=== PATIENT | male | born 1985 | race Asian ===

== ENCOUNTER 2018-05-23 14:32 | Inpatient (IN) | payer OTHER ==
[~2018-05-23] VITALS: Ht 172.7 cm; Wt 154.6 kg
[2018-05-23] MEDS: ACCU-CHEK COMFORT CURVE STRIP VI SCH (11:05)
[2018-05-23] MEDS ORDERED: VANCOMYCIN 1GM/250ML 250 ML IV ONE (19:30)
[2018-05-23] MEDS ORDERED: cefTRIAXone 1GM/10ml IVPUSH 10 ML IV ONE (19:30)
[2018-05-23 19:34] LABS: Basophils # (auto) 0.2 uL; Eosinophils # (auto) 0.1 uL; Eosinophils % (auto) 0.7 % (0.0-7.0); Mean Corpuscular Hemoglobin 27.8 pg (28.0-32.0); Mean Corpuscular Hgb Conc. 33.6 g/dL (32.0-36.0); White Blood Cell 15.5 10^3/uL (4.4-10.8)
[2018-05-23 19:35] LABS: Hematocrit 49.2 % (41.0-53.0); Hemoglobin 16.5 g/dL (13.5-17.5); Mean Corpuscular Volume 82.6 fL (80.0-100.0); Monocytes % (auto) 6.4 % (0.0-12.0); Neutrophils # (auto) 12.2 uL; Neutrophils % (auto) 78.9 % (37.0-80.0); Nucleated Red Blood Cells % 0.3 %; Platelet Count (auto) 473 10^3/uL (140-450); Red Blood Cells 5.96 10^6/uL (4.5-5.90); Red Cell Distribution Width 14.1 % (11.8-14.3)
[2018-05-23 19:49] LABS: Calcium 8.9 mg/dL (8.5-10.1)
[2018-05-23 19:52] LABS: Albumin 2.6 g/dL (3.4-5.0); BUN/Creatinine Ratio 14.5
[2018-05-23 19:55] LABS: Bilirubin, Total 0.2 mg/dL (0.2-1.0); Total Protein 8.9 g/dL (6.4-8.2)
[2018-05-23 19:57] LABS: Lactic Acid w/Reflex 2.3 mmol/L (0.4-2.0)
[2018-05-23] MEDS: SODIUM CHLORIDE 0.9% 1,000 ML IV SCH (20:15)
[2018-05-23] MEDS ORDERED: metFORMIN HYDROCHLORIDE 500 MG TAB PO ONE (20:15)
[2018-05-23] MEDS ORDERED: MORPHINE SULFATE 4 MG/ML SYR/VIAL IV ONE (20:15)
[2018-05-23] MEDS ORDERED: ONDANSETRON HCL 4 MG/2 ML VIAL IV ONE (20:15)
[2018-05-23] MEDS ORDERED: DEXTROSE (50%) 50ML SYRG IV PRN (21:15)
[2018-05-23] MEDS: metFORMIN HYDROCHLORIDE 500 MG TAB PO SCH (21:45)
[2018-05-23] MEDS ORDERED: ACCU-CHEK COMFORT CURVE STRIP VI ONE (22:00)
[2018-05-23 22:30] VITALS: BP 128/80
[2018-05-23 23:04] VITALS: BP 128/80
[2018-05-23] MEDS: InsuLIN REG 1unit/0.01ml Soln (100units/ml) SC SCH (23:50)
[2018-05-24] MEDS: SODIUM CHLORIDE 0.9% 1,000 ML IV SCH ×5 (00:34→16:15)
[2018-05-24] MEDS: HYDROcodone-ACET 10/325MG TAB PO SCH ×5 (02:16→17:47)
[2018-05-24 05:24] VITALS: BP 93/52
[2018-05-24 05:53] LABS: Basophils # (auto) 0.1 uL; Basophils % (auto) 0.4 % (0.0-2.0); Eosinophils # (auto) 0.2 uL; Hematocrit 44.6 % (41.0-53.0); Lymphocytes # (auto) 2.1 uL; Lymphocytes % (auto) 13.2 % (10.0-50.0); Mean Corpuscular Hemoglobin 27.7 pg (28.0-32.0); Mean Corpuscular Hgb Conc. 33.6 g/dL (32.0-36.0); Mean Corpuscular Volume 82.2 fL (80.0-100.0); Monocytes # (auto) 1.3 uL; Monocytes % (auto) 8.4 % (0.0-12.0); Neutrophils # (auto) 12.2 uL; Nucleated Red Blood Cells % 0.2 %; Platelet Count (auto) 400 10^3/uL (140-450); Red Blood Cells 5.42 10^6/uL (4.5-5.90); Red Cell Distribution Width 13.7 % (11.8-14.3); White Blood Cell 15.9 10^3/uL (4.4-10.8)
[2018-05-24 06:18] LABS: BUN/Creatinine Ratio 14.5; Calcium 8.1 mg/dL (8.5-10.1)
[2018-05-24] MEDS: ACCU-CHEK COMFORT CURVE STRIP VI SCH ×4 (06:27→22:00)
[2018-05-24] MEDS: InsuLIN REG 1unit/0.01ml Soln (100units/ml) SC SCH ×4 (06:31→22:00)
[2018-05-24] MEDS: metFORMIN HYDROCHLORIDE 500 MG TAB PO SCH ×2 (08:00→17:47)
[2018-05-24] MEDS: VANCOMYCIN 1GM/250ML 250 ML IV SCH ×2 (08:06→20:13)
[2018-05-24] MEDS: INSULIN LANTUS (GLARGINE) 1 /0.01ml (100units/ml) SC SCH (08:30)
[2018-05-24 08:35] VITALS: BP 95/59
[2018-05-24 12:22] VITALS: BP 95/60
[2018-05-24 16:42] VITALS: BP 100/61
[2018-05-24 22:10] VITALS: BP 110/62
[2018-05-25] MEDS: SODIUM CHLORIDE 0.9% 1,000 ML IV SCH ×3 (00:15→04:15)
[2018-05-25] MEDS: HYDROcodone-ACET 10/325MG TAB PO SCH ×4 (02:14→14:00)
[2018-05-25 04:54] VITALS: BP 106/64
[2018-05-25 06:06] LABS: INR 1.01 (0.9-1.15); Partial Thromboplastin Time 28.9 sec (23.78-33.04); Prothrombin Time 10.8 sec (9.27-12.13)
[2018-05-25] MEDS: InsuLIN REG 1unit/0.01ml Soln (100units/ml) SC SCH ×4 (06:14→22:46)
[2018-05-25] MEDS: ACCU-CHEK COMFORT CURVE STRIP VI SCH ×4 (06:14→22:42)
[2018-05-25] MEDS: INSULIN LANTUS (GLARGINE) 1 /0.01ml (100units/ml) SC SCH (06:14)
[2018-05-25 08:00] VITALS: BP 122/69
[2018-05-25] MEDS: VANCOMYCIN 1GM/250ML 250 ML IV SCH ×3 (08:07→18:00)
[2018-05-25] MEDS: metFORMIN HYDROCHLORIDE 500 MG TAB PO SCH ×2 (08:11→18:56)
[2018-05-25 09:00] VITALS: BP 122/69
[2018-05-25] MEDS: ENOXAPARIN SOD 40 MG/0.4 ML SYRINGE SC SCH (10:00)
[2018-05-25] MEDS: PANTOPRAZOLE 40 MG TAB PO SCH (10:00)
[2018-05-25] MEDS ORDERED: ROCURONIUM 10MG/ML 10ML VIAL IV ONE ×2 (10:45→16:17)
[2018-05-25] MEDS: PIPERACILLIN-TAZOB 3.375GM 100 ML IV SCH ×3 (12:33→21:02)
[2018-05-25 13:00] VITALS: BP 116/67
[2018-05-25] MEDS ORDERED: SUCCINYLCHOLINE CHLORIDE 20 MG/ML 10ML VIAL IV ONE (16:11)
[2018-05-25] MEDS ORDERED: MIDAZOLAM HCL 1MG/1ML-2 ML VIAL ONE (16:16)
[2018-05-25] MEDS ORDERED: fentaNYL CITRATE 100 MCG/2 ML VL ONE (16:16)
[2018-05-25] MEDS ORDERED: PROPOFOL 10 MG/ML 20 ML IV ONE (16:17)
[2018-05-25] MEDS ORDERED: ceFAZolin 1GM VL ONE (16:23)
[2018-05-25] MEDS ORDERED: LIDOCAINE 1% HCL (LOCAL ANESTH.) INJ 20ML MDV ONE (16:26)
[2018-05-25] MEDS ORDERED: BUPIVACAINE HCL 50 ML ONE (16:26)
[2018-05-25 17:00] VITALS: BP 129/74
[2018-05-25] MEDS ORDERED: ONDANSETRON HCL 4 MG/2 ML VIAL ONE (17:22)
[2018-05-25] MEDS ORDERED: METOCLOPRAMIDE HCL 5MG/ml INJ 2ml VIAL ONE (17:22)
[2018-05-25] MEDS ORDERED: NEOSTIGMINE 1 MG/ML INJ (10mg/10ML VIAL) ONE (17:25)
[2018-05-25] MEDS ORDERED: GLYCOPYRROLATE 0.2 MG/ML 1ML VIAL ONE (17:26)
[2018-05-25] MEDS ORDERED: OXYCODONE W/ ACETAMINOPHEN 5/325MG TABLET PO PRN (17:45)
[2018-05-25] MEDS ORDERED: ONDANSETRON HCL 4 MG/2 ML VIAL IV ONE (18:00)
[2018-05-25] MEDS ORDERED: HYDROmorphone HCL 2 MG/ML VL IV PRN (18:00)
[2018-05-25] MEDS ORDERED: HYDROmorphone HCL 2 MG/ML VL ONE (18:23)
[2018-05-25] MEDS: OXYCODONE W/ ACETAMINOPHEN 5/325MG TABLET PO PRN (21:02)
[2018-05-25 22:00] VITALS: BP 127/79
[2018-05-26] MEDS: VANCOMYCIN 1GM/250ML 250 ML IV SCH ×5 (00:23→23:42)
[2018-05-26] MEDS: PIPERACILLIN-TAZOB 3.375GM 100 ML IV SCH ×4 (02:32→21:02)
[2018-05-26 05:00] VITALS: BP 119/74
[2018-05-26 05:46] LABS: Basophils # (auto) 0.1 uL; Basophils % (auto) 0.4 % (0.0-2.0); Eosinophils # (auto) 0.1 uL; Eosinophils % (auto) 0.5 % (0.0-7.0); Hemoglobin 12.5 g/dL (13.5-17.5); Lymphocytes # (auto) 1.8 uL; Mean Corpuscular Hemoglobin 27.7 pg (28.0-32.0); Mean Corpuscular Hgb Conc. 33.9 g/dL (32.0-36.0); Mean Corpuscular Volume 81.6 fL (80.0-100.0); Monocytes % (auto) 6.6 % (0.0-12.0); Neutrophils # (auto) 12.1 uL; Neutrophils % (auto) 80.5 % (37.0-80.0); Platelet Count (auto) 340 10^3/uL (140-450); Red Blood Cells 4.53 10^6/uL (4.5-5.90); Red Cell Distribution Width 13.4 % (11.8-14.3); White Blood Cell 15.1 10^3/uL (4.4-10.8)
[2018-05-26 06:06] LABS: Potassium 4.4 mmol/L (3.5-5.1)
[2018-05-26 06:15] LABS: BUN/Creatinine Ratio 16.5; Calcium 7.6 mg/dL (8.5-10.1)
[2018-05-26] MEDS: ACCU-CHEK COMFORT CURVE STRIP VI SCH ×4 (07:03→22:01)
[2018-05-26] MEDS: InsuLIN REG 1unit/0.01ml Soln (100units/ml) SC SCH ×4 (07:04→22:01)
[2018-05-26] MEDS: INSULIN LANTUS (GLARGINE) 1 /0.01ml (100units/ml) SC SCH (07:04)
[2018-05-26] MEDS: OXYCODONE W/ ACETAMINOPHEN 5/325MG TABLET PO PRN ×3 (07:26→21:02)
[2018-05-26] MEDS: metFORMIN HYDROCHLORIDE 500 MG TAB PO SCH ×2 (08:10→17:45)
[2018-05-26 09:00] VITALS: BP 137/81
[2018-05-26] MEDS: ENOXAPARIN SOD 40 MG/0.4 ML SYRINGE SC SCH (10:05)
[2018-05-26] MEDS: PANTOPRAZOLE 40 MG TAB PO SCH (10:05)
[2018-05-26 12:30] VITALS: BP 133/76
[2018-05-26 17:00] VITALS: BP 124/81
[2018-05-26 21:30] VITALS: BP 144/74
[2018-05-27] MEDS: PIPERACILLIN-TAZOB 3.375GM 100 ML IV SCH ×4 (03:10→21:13)
[2018-05-27 05:00] VITALS: BP 137/85
[2018-05-27 05:40] LABS: Basophils # (auto) 0.1 uL; Basophils % (auto) 0.7 % (0.0-2.0); Eosinophils # (auto) 0.1 uL; Eosinophils % (auto) 1.4 % (0.0-7.0); Hematocrit 34.9 % (41.0-53.0); Hemoglobin 11.8 g/dL (13.5-17.5); Lymphocytes # (auto) 1.3 uL; Lymphocytes % (auto) 16.1 % (10.0-50.0); Mean Corpuscular Hemoglobin 27.7 pg (28.0-32.0); Mean Corpuscular Hgb Conc. 33.9 g/dL (32.0-36.0); Mean Corpuscular Volume 81.7 fL (80.0-100.0); Monocytes # (auto) 0.6 uL; Neutrophils % (auto) 74.8 % (37.0-80.0); Platelet Count (auto) 344 10^3/uL (140-450); Red Blood Cells 4.27 10^6/uL (4.5-5.90); Red Cell Distribution Width 13.6 % (11.8-14.3); White Blood Cell 8.1 10^3/uL (4.4-10.8)
[2018-05-27 05:59] LABS: Albumin 1.8 g/dL (3.4-5.0); Calcium 7.9 mg/dL (8.5-10.1)
[2018-05-27 06:05] LABS: BUN/Creatinine Ratio 16.2; Bilirubin, Total 0.3 mg/dL (0.2-1.0); Total Protein 6.5 g/dL (6.4-8.2)
[2018-05-27] MEDS: OXYCODONE W/ ACETAMINOPHEN 5/325MG TABLET PO PRN ×4 (06:23→21:14)
[2018-05-27] MEDS: VANCOMYCIN 1GM/250ML 250 ML IV SCH ×3 (06:23→17:44)
[2018-05-27] MEDS: InsuLIN REG 1unit/0.01ml Soln (100units/ml) SC SCH ×4 (06:28→21:19)
[2018-05-27] MEDS: ACCU-CHEK COMFORT CURVE STRIP VI SCH ×4 (06:29→21:20)
[2018-05-27] MEDS: INSULIN LANTUS (GLARGINE) 1 /0.01ml (100units/ml) SC SCH (06:29)
[2018-05-27] MEDS: MORPHINE SULFATE 4 MG/ML SYR/VIAL IV PRN (07:30)
[2018-05-27 08:07] VITALS: BP 169/96
[2018-05-27] MEDS: metFORMIN HYDROCHLORIDE 500 MG TAB PO SCH ×2 (08:41→17:53)
[2018-05-27] MEDS: PANTOPRAZOLE 40 MG TAB PO SCH (10:32)
[2018-05-27] MEDS: ENOXAPARIN SOD 40 MG/0.4 ML SYRINGE SC SCH (10:32)
[2018-05-27 11:59] VITALS: BP 150/79
[2018-05-27] MEDS ORDERED: OXYCODONE W/ ACETAMINOPHEN 5/325MG TABLET PO ONE (13:00)
[2018-05-27 16:51] VITALS: BP 163/90
[2018-05-27] MEDS ORDERED: ASCORBIC ACID 500 MG TAB PO ONE (17:15)
[2018-05-27] MEDS ORDERED: MULTIPLE VITAMIN TAB PO ONE (17:15)
[2018-05-27] MEDS: Pro-Stat SF 30ml Vanilla PO SCH (18:38)
[2018-05-27] MEDS: ASCORBIC ACID 500 MG TAB PO SCH (21:19)
[2018-05-28] MEDS: VANCOMYCIN 1GM/250ML 250 ML IV SCH ×5 (00:28→23:32)
[2018-05-28] MEDS: OXYCODONE W/ ACETAMINOPHEN 5/325MG TABLET PO PRN ×3 (01:22→11:42)
[2018-05-28] MEDS: PIPERACILLIN-TAZOB 3.375GM 100 ML IV SCH ×4 (03:28→20:56)
[2018-05-28 05:56] VITALS: BP 139/82
[2018-05-28] MEDS: ACCU-CHEK COMFORT CURVE STRIP VI SCH ×4 (06:14→23:31)
[2018-05-28] MEDS: INSULIN LANTUS (GLARGINE) 1 /0.01ml (100units/ml) SC SCH (06:14)
[2018-05-28] MEDS: InsuLIN REG 1unit/0.01ml Soln (100units/ml) SC SCH ×4 (06:14→23:33)
[2018-05-28] MEDS: Pro-Stat SF 30ml Vanilla PO SCH ×2 (08:00→18:03)
[2018-05-28 09:00] VITALS: BP 137/85
[2018-05-28] MEDS: MULTIPLE VITAMIN TAB PO SCH (11:09)
[2018-05-28] MEDS: metFORMIN HYDROCHLORIDE 500 MG TAB PO SCH ×2 (11:09→18:19)
[2018-05-28] MEDS: PANTOPRAZOLE 40 MG TAB PO SCH (11:10)
[2018-05-28] MEDS: ENOXAPARIN SOD 40 MG/0.4 ML SYRINGE SC SCH (11:10)
[2018-05-28] MEDS: ASCORBIC ACID 500 MG TAB PO SCH ×2 (11:10→21:02)
[2018-05-28 12:00] VITALS: BP 154/89
[2018-05-28 16:00] VITALS: BP 144/91
[2018-05-28] MEDS: MORPHINE SULFATE 4 MG/ML SYR/VIAL IV PRN ×2 (17:25→22:00)
[2018-05-28 22:00] VITALS: BP 147/71
[2018-05-29] MEDS: MORPHINE SULFATE 4 MG/ML SYR/VIAL IV PRN ×4 (03:15→21:42)
[2018-05-29] MEDS: PIPERACILLIN-TAZOB 3.375GM 100 ML IV SCH ×4 (03:22→22:20)
[2018-05-29 04:00] VITALS: BP 145/88
[2018-05-29] MEDS: VANCOMYCIN 1GM/250ML 250 ML IV SCH ×2 (06:12→12:06)
[2018-05-29] MEDS: ACCU-CHEK COMFORT CURVE STRIP VI SCH ×4 (06:15→21:05)
[2018-05-29] MEDS: InsuLIN REG 1unit/0.01ml Soln (100units/ml) SC SCH ×4 (06:16→21:05)
[2018-05-29] MEDS: INSULIN LANTUS (GLARGINE) 1 /0.01ml (100units/ml) SC SCH (06:17)
[2018-05-29] MEDS: metFORMIN HYDROCHLORIDE 500 MG TAB PO SCH ×2 (08:04→19:02)
[2018-05-29] MEDS: Pro-Stat SF 30ml Vanilla PO SCH ×2 (08:08→19:01)
[2018-05-29 08:24] VITALS: BP 146/83
[2018-05-29 08:35] LABS: Potassium 4.5 mmol/L (3.5-5.1)
[2018-05-29 08:42] LABS: Calcium 8.4 mg/dL (8.5-10.1)
[2018-05-29] MEDS: PANTOPRAZOLE 40 MG TAB PO SCH (09:50)
[2018-05-29] MEDS: ENOXAPARIN SOD 40 MG/0.4 ML SYRINGE SC SCH (09:50)
[2018-05-29] MEDS: MULTIPLE VITAMIN TAB PO SCH (09:50)
[2018-05-29] MEDS: ASCORBIC ACID 500 MG TAB PO SCH ×2 (09:50→21:05)
[2018-05-29 11:48] VITALS: BP 146/88
[2018-05-29] MEDS ORDERED: OXYCODONE W/ ACETAMINOPHEN 5/325MG TABLET PO PRN (14:45)
[2018-05-29 17:00] VITALS: BP 148/84
[2018-05-29 21:19] VITALS: BP 147/95
[2018-05-30] MEDS: MORPHINE SULFATE 4 MG/ML SYR/VIAL IV PRN ×6 (01:41→22:43)
[2018-05-30] MEDS: PIPERACILLIN-TAZOB 3.375GM 100 ML IV SCH ×4 (04:34→22:44)
[2018-05-30 05:34] VITALS: BP 150/98
[2018-05-30] MEDS: ACCU-CHEK COMFORT CURVE STRIP VI SCH ×4 (06:40→22:00)
[2018-05-30] MEDS: InsuLIN REG 1unit/0.01ml Soln (100units/ml) SC SCH ×4 (06:40→22:00)
[2018-05-30] MEDS: INSULIN LANTUS (GLARGINE) 1 /0.01ml (100units/ml) SC SCH (06:40)
[2018-05-30 07:53] VITALS: BP 164/87
[2018-05-30] MEDS: Pro-Stat SF 30ml Vanilla PO SCH ×2 (08:00→18:08)
[2018-05-30] MEDS: metFORMIN HYDROCHLORIDE 500 MG TAB PO SCH ×2 (08:00→18:07)
[2018-05-30] MEDS: MULTIPLE VITAMIN TAB PO SCH (09:41)
[2018-05-30] MEDS: ENOXAPARIN SOD 40 MG/0.4 ML SYRINGE SC SCH (09:41)
[2018-05-30] MEDS: PANTOPRAZOLE 40 MG TAB PO SCH (09:41)
[2018-05-30] MEDS: ASCORBIC ACID 500 MG TAB PO SCH ×2 (09:41→22:42)
[2018-05-30 12:20] VITALS: BP 149/91
[2018-05-30 17:00] VITALS: BP 158/88
[2018-05-30 17:41] LABS: Basophils # (auto) 0.1 uL; Basophils % (auto) 1.1 % (0.0-2.0); Eosinophils # (auto) 0.1 uL; Eosinophils % (auto) 1.3 % (0.0-7.0); Hematocrit 35.6 % (41.0-53.0); Hemoglobin 11.8 g/dL (13.5-17.5); Lymphocytes # (auto) 2.2 uL; Lymphocytes % (auto) 25.1 % (10.0-50.0); Mean Corpuscular Hemoglobin 27.2 pg (28.0-32.0); Mean Corpuscular Hgb Conc. 33.1 g/dL (32.0-36.0); Mean Corpuscular Volume 82.1 fL (80.0-100.0); Monocytes # (auto) 0.6 uL; Monocytes % (auto) 6.9 % (0.0-12.0); Neutrophils # (auto) 5.7 uL; Neutrophils % (auto) 65.6 % (37.0-80.0); Nucleated Red Blood Cells % 0.1 %; Platelet Count (auto) 379 10^3/uL (140-450); Red Blood Cells 4.33 10^6/uL (4.5-5.90); Red Cell Distribution Width 13.7 % (11.8-14.3); White Blood Cell 8.6 10^3/uL (4.4-10.8)
[2018-05-30] MEDS ORDERED: cloNIDine HCL 0.1 MG TAB PO PRN (18:30)
[2018-05-30 21:31] VITALS: BP 146/80
[2018-05-31 05:14] VITALS: BP 149/87
[2018-05-31] MEDS: PIPERACILLIN-TAZOB 3.375GM 100 ML IV SCH ×4 (06:03→22:27)
[2018-05-31] MEDS: InsuLIN REG 1unit/0.01ml Soln (100units/ml) SC SCH ×4 (07:00→22:26)
[2018-05-31] MEDS: ACCU-CHEK COMFORT CURVE STRIP VI SCH ×4 (07:00→22:26)
[2018-05-31] MEDS: MORPHINE SULFATE 4 MG/ML SYR/VIAL IV PRN ×4 (07:00→22:30)
[2018-05-31] MEDS: INSULIN LANTUS (GLARGINE) 1 /0.01ml (100units/ml) SC SCH (07:00)
[2018-05-31] MEDS: metFORMIN HYDROCHLORIDE 500 MG TAB PO SCH ×2 (08:52→18:14)
[2018-05-31] MEDS: Pro-Stat SF 30ml Vanilla PO SCH ×2 (08:52→18:15)
[2018-05-31 09:01] VITALS: BP 150/79
[2018-05-31] MEDS: MULTIPLE VITAMIN TAB PO SCH (09:42)
[2018-05-31] MEDS: ASCORBIC ACID 500 MG TAB PO SCH ×2 (09:43→22:25)
[2018-05-31] MEDS: PANTOPRAZOLE 40 MG TAB PO SCH (09:43)
[2018-05-31] MEDS: ENOXAPARIN SOD 40 MG/0.4 ML SYRINGE SC SCH (09:43)
[2018-05-31] MEDS ORDERED: LOSARTAN POTASSIUM 50 MG TAB PO SCH (10:00)
[2018-05-31 13:00] VITALS: BP 151/81
[2018-05-31 17:00] VITALS: BP 137/77
[2018-05-31 22:00] VITALS: BP 156/87
[2018-06-01 05:00] VITALS: BP 141/78
[2018-06-01] MEDS: PIPERACILLIN-TAZOB 3.375GM 100 ML IV SCH ×4 (05:00→22:40)
[2018-06-01] MEDS: InsuLIN REG 1unit/0.01ml Soln (100units/ml) SC SCH ×4 (06:52→22:24)
[2018-06-01] MEDS: INSULIN LANTUS (GLARGINE) 1 /0.01ml (100units/ml) SC SCH (06:52)
[2018-06-01] MEDS: ACCU-CHEK COMFORT CURVE STRIP VI SCH ×4 (06:53→22:24)
[2018-06-01 07:48] VITALS: BP 146/99
[2018-06-01] MEDS: metFORMIN HYDROCHLORIDE 500 MG TAB PO SCH ×2 (08:25→17:51)
[2018-06-01] MEDS: MULTIPLE VITAMIN TAB PO SCH (10:08)
[2018-06-01] MEDS: PANTOPRAZOLE 40 MG TAB PO SCH (10:08)
[2018-06-01] MEDS: ENOXAPARIN SOD 40 MG/0.4 ML SYRINGE SC SCH (10:10)
[2018-06-01] MEDS: ASCORBIC ACID 500 MG TAB PO SCH ×2 (10:10→22:24)
[2018-06-01] MEDS: LOSARTAN POTASSIUM 50 MG TAB PO SCH (10:10)
[2018-06-01] MEDS: Pro-Stat SF 30ml Vanilla PO SCH ×2 (10:13→17:52)
[2018-06-01] MEDS: MORPHINE SULFATE 4 MG/ML SYR/VIAL IV PRN ×3 (10:46→22:41)
[2018-06-01 11:46] VITALS: BP 135/82
[2018-06-01 16:56] VITALS: BP 140/86
[2018-06-01 20:00] VITALS: BP 146/99
[2018-06-01 21:34] VITALS: BP 143/86
[2018-06-02 04:41] VITALS: BP 146/78
[2018-06-02] MEDS: PIPERACILLIN-TAZOB 3.375GM 100 ML IV SCH ×6 (05:08→23:00)
[2018-06-02] MEDS: MORPHINE SULFATE 4 MG/ML SYR/VIAL IV PRN ×5 (05:27→22:00)
[2018-06-02] MEDS: ACCU-CHEK COMFORT CURVE STRIP VI SCH ×4 (06:35→22:00)
[2018-06-02] MEDS: InsuLIN REG 1unit/0.01ml Soln (100units/ml) SC SCH ×4 (06:50→22:00)
[2018-06-02] MEDS: INSULIN LANTUS (GLARGINE) 1 /0.01ml (100units/ml) SC SCH (06:55)
[2018-06-02] MEDS: metFORMIN HYDROCHLORIDE 500 MG TAB PO SCH ×2 (08:22→17:39)
[2018-06-02] MEDS: Pro-Stat SF 30ml Vanilla PO SCH ×2 (08:52→17:47)
[2018-06-02 09:01] VITALS: BP 132/78
[2018-06-02] MEDS: ASCORBIC ACID 500 MG TAB PO SCH ×2 (10:21→22:00)
[2018-06-02] MEDS: PANTOPRAZOLE 40 MG TAB PO SCH (10:22)
[2018-06-02] MEDS: LOSARTAN POTASSIUM 50 MG TAB PO SCH (10:22)
[2018-06-02] MEDS: MULTIPLE VITAMIN TAB PO SCH (10:22)
[2018-06-02] MEDS: ENOXAPARIN SOD 40 MG/0.4 ML SYRINGE SC SCH (10:23)
[2018-06-02 13:20] VITALS: BP 140/73
[2018-06-02 17:09] VITALS: BP 134/80
[2018-06-02 20:00] VITALS: BP 132/78
[2018-06-02 22:00] VITALS: BP 147/82
[2018-06-03] MEDS: MORPHINE SULFATE 4 MG/ML SYR/VIAL IV PRN ×4 (04:31→20:53)
[2018-06-03 04:54] VITALS: BP 142/78
[2018-06-03] MEDS: PIPERACILLIN-TAZOB 3.375GM 100 ML IV SCH ×4 (06:00→22:56)
[2018-06-03] MEDS: ACCU-CHEK COMFORT CURVE STRIP VI SCH ×4 (07:01→21:43)
[2018-06-03] MEDS: INSULIN LANTUS (GLARGINE) 1 /0.01ml (100units/ml) SC SCH (07:01)
[2018-06-03] MEDS: InsuLIN REG 1unit/0.01ml Soln (100units/ml) SC SCH ×4 (07:01→21:43)
[2018-06-03] MEDS: Pro-Stat SF 30ml Vanilla PO SCH ×2 (07:10→17:03)
[2018-06-03 07:40] VITALS: BP 128/76
[2018-06-03 08:00] VITALS: BP 128/76
[2018-06-03] MEDS: metFORMIN HYDROCHLORIDE 500 MG TAB PO SCH ×2 (08:05→17:16)
[2018-06-03] MEDS: MULTIPLE VITAMIN TAB PO SCH (09:13)
[2018-06-03] MEDS: ENOXAPARIN SOD 40 MG/0.4 ML SYRINGE SC SCH (09:13)
[2018-06-03] MEDS: LOSARTAN POTASSIUM 50 MG TAB PO SCH (09:13)
[2018-06-03] MEDS: PANTOPRAZOLE 40 MG TAB PO SCH (09:14)
[2018-06-03] MEDS: ASCORBIC ACID 500 MG TAB PO SCH ×2 (09:14→21:42)
[2018-06-03 11:23] LABS: INR 0.93 (0.9-1.15)
[2018-06-03 11:57] VITALS: BP 126/85
[2018-06-03 16:48] VITALS: BP 137/82
[2018-06-03 22:00] VITALS: BP 128/80
[2018-06-04] VITALS (7 sets, daily range): BP systolic 135–145; BP diastolic 75–97
[2018-06-04] MEDS: PIPERACILLIN-TAZOB 3.375GM 100 ML IV SCH ×4 (05:10→23:07)
[2018-06-04] MEDS: ACCU-CHEK COMFORT CURVE STRIP VI SCH ×4 (06:33→23:07)
[2018-06-04] MEDS: MORPHINE SULFATE 4 MG/ML SYR/VIAL IV PRN ×3 (06:35→16:25)
[2018-06-04] MEDS: INSULIN LANTUS (GLARGINE) 1 /0.01ml (100units/ml) SC SCH (06:35)
[2018-06-04] MEDS: InsuLIN REG 1unit/0.01ml Soln (100units/ml) SC SCH ×4 (06:35→23:06)
[2018-06-04] MEDS: Pro-Stat SF 30ml Vanilla PO SCH ×2 (07:18→17:27)
[2018-06-04] MEDS: metFORMIN HYDROCHLORIDE 500 MG TAB PO SCH ×2 (07:57→17:26)
[2018-06-04] MEDS: ENOXAPARIN SOD 40 MG/0.4 ML SYRINGE SC SCH (10:09)
[2018-06-04] MEDS: PANTOPRAZOLE 40 MG TAB PO SCH (10:09)
[2018-06-04] MEDS: LOSARTAN POTASSIUM 50 MG TAB PO SCH (10:10)
[2018-06-04] MEDS: MULTIPLE VITAMIN TAB PO SCH (10:10)
[2018-06-04] MEDS: ASCORBIC ACID 500 MG TAB PO SCH ×2 (10:10→23:04)
[2018-06-05] MEDS: MORPHINE SULFATE 4 MG/ML SYR/VIAL IV PRN ×4 (00:15→21:33)
[2018-06-05 04:54] VITALS: BP 132/83
[2018-06-05] MEDS: PIPERACILLIN-TAZOB 3.375GM 100 ML IV SCH ×4 (05:38→22:29)
[2018-06-05 05:58] LABS: Potassium 4.1 mmol/L (3.5-5.1)
[2018-06-05 06:04] LABS: Albumin 2.5 g/dL (3.4-5.0); BUN/Creatinine Ratio 11.8; Calcium 8.9 mg/dL (8.5-10.1)
[2018-06-05 06:13] LABS: Bilirubin, Total 0.3 mg/dL (0.2-1.0); Total Protein 7.4 g/dL (6.4-8.2)
[2018-06-05] MEDS: InsuLIN REG 1unit/0.01ml Soln (100units/ml) SC SCH ×4 (06:47→21:32)
[2018-06-05] MEDS: ACCU-CHEK COMFORT CURVE STRIP VI SCH ×4 (06:48→21:32)
[2018-06-05] MEDS: INSULIN LANTUS (GLARGINE) 1 /0.01ml (100units/ml) SC SCH (06:48)
[2018-06-05] MEDS: metFORMIN HYDROCHLORIDE 500 MG TAB PO SCH ×2 (07:57→17:41)
[2018-06-05 08:00] VITALS: BP 129/85
[2018-06-05] MEDS: Pro-Stat SF 30ml Vanilla PO SCH ×2 (08:04→18:18)
[2018-06-05 08:12] VITALS: BP 129/85
[2018-06-05] MEDS: LOSARTAN POTASSIUM 50 MG TAB PO SCH (09:42)
[2018-06-05] MEDS: MULTIPLE VITAMIN TAB PO SCH (09:42)
[2018-06-05] MEDS: PANTOPRAZOLE 40 MG TAB PO SCH (09:42)
[2018-06-05] MEDS: ASCORBIC ACID 500 MG TAB PO SCH ×2 (09:42→21:32)
[2018-06-05] MEDS: ENOXAPARIN SOD 40 MG/0.4 ML SYRINGE SC SCH (09:42)
[2018-06-05 12:13] VITALS: BP 125/76
[2018-06-05] MEDS ORDERED: LIDOCAINE 1% (LOCAL ANESTH.) PF 5ml SDV ID ONE (15:00)
[2018-06-05 16:44] VITALS: BP 130/78
[2018-06-05] MEDS: SODIUM CHLOR 0.9% PF (SALINE LOCK) 10ML VIAL/SYR IV SCH (21:31)
[2018-06-05 22:00] VITALS: BP 138/81
[2018-06-06 05:00] VITALS: BP 147/82
[2018-06-06] MEDS: PIPERACILLIN-TAZOB 3.375GM 100 ML IV SCH ×4 (05:53→22:21)
[2018-06-06] MEDS: INSULIN LANTUS (GLARGINE) 1 /0.01ml (100units/ml) SC SCH (06:56)
[2018-06-06] MEDS: ACCU-CHEK COMFORT CURVE STRIP VI SCH ×4 (06:56→22:20)
[2018-06-06] MEDS: InsuLIN REG 1unit/0.01ml Soln (100units/ml) SC SCH ×4 (06:56→22:20)
[2018-06-06] MEDS: MORPHINE SULFATE 4 MG/ML SYR/VIAL IV PRN ×4 (06:57→22:22)
[2018-06-06 08:52] VITALS: BP 147/84
[2018-06-06] MEDS: PANTOPRAZOLE 40 MG TAB PO SCH (09:15)
[2018-06-06] MEDS: ASCORBIC ACID 500 MG TAB PO SCH ×2 (09:15→22:20)
[2018-06-06] MEDS: MULTIPLE VITAMIN TAB PO SCH (09:15)
[2018-06-06] MEDS: metFORMIN HYDROCHLORIDE 500 MG TAB PO SCH ×2 (09:16→18:28)
[2018-06-06] MEDS: LOSARTAN POTASSIUM 50 MG TAB PO SCH (09:16)
[2018-06-06] MEDS: SODIUM CHLOR 0.9% PF (SALINE LOCK) 10ML VIAL/SYR IV SCH ×2 (09:16→22:19)
[2018-06-06] MEDS: ENOXAPARIN SOD 40 MG/0.4 ML SYRINGE SC SCH (09:16)
[2018-06-06] MEDS: Pro-Stat SF 30ml Vanilla PO SCH ×2 (09:17→18:28)
[2018-06-06 13:00] VITALS: BP 144/70
[2018-06-06 16:33] VITALS: BP 127/77
[2018-06-06 21:54] VITALS: BP 124/79
[2018-06-07 04:57] VITALS: BP 120/75
[2018-06-07] MEDS: PIPERACILLIN-TAZOB 3.375GM 100 ML IV SCH ×4 (05:03→22:29)
[2018-06-07] MEDS: InsuLIN REG 1unit/0.01ml Soln (100units/ml) SC SCH ×4 (06:26→22:29)
[2018-06-07] MEDS: INSULIN LANTUS (GLARGINE) 1 /0.01ml (100units/ml) SC SCH (06:27)
[2018-06-07] MEDS: ACCU-CHEK COMFORT CURVE STRIP VI SCH ×4 (06:27→22:14)
[2018-06-07] MEDS: MORPHINE SULFATE 4 MG/ML SYR/VIAL IV PRN ×3 (06:28→22:14)
[2018-06-07] MEDS: Pro-Stat SF 30ml Vanilla PO SCH ×2 (08:19→17:38)
[2018-06-07] MEDS: metFORMIN HYDROCHLORIDE 500 MG TAB PO SCH ×2 (08:19→17:38)
[2018-06-07] MEDS: SODIUM CHLOR 0.9% PF (SALINE LOCK) 10ML VIAL/SYR IV SCH ×2 (09:28→22:19)
[2018-06-07] MEDS: MULTIPLE VITAMIN TAB PO SCH (09:28)
[2018-06-07] MEDS: LOSARTAN POTASSIUM 50 MG TAB PO SCH (09:28)
[2018-06-07] MEDS: PANTOPRAZOLE 40 MG TAB PO SCH (09:28)
[2018-06-07] MEDS: ASCORBIC ACID 500 MG TAB PO SCH ×2 (09:29→22:29)
[2018-06-07] MEDS: ENOXAPARIN SOD 40 MG/0.4 ML SYRINGE SC SCH (09:29)
[2018-06-07 09:56] VITALS: BP 109/73
[2018-06-07 13:31] VITALS: BP 110/66
[2018-06-07 16:29] VITALS: BP 117/70
[2018-06-07 22:00] VITALS: BP 133/79
[2018-06-08] MEDS: MORPHINE SULFATE 4 MG/ML SYR/VIAL IV PRN ×6 (00:56→23:50)
[2018-06-08 04:54] VITALS: BP 116/59
[2018-06-08] MEDS: PIPERACILLIN-TAZOB 3.375GM 100 ML IV SCH ×4 (05:24→23:49)
[2018-06-08] MEDS: ACCU-CHEK COMFORT CURVE STRIP VI SCH ×4 (06:28→21:28)
[2018-06-08] MEDS: INSULIN LANTUS (GLARGINE) 1 /0.01ml (100units/ml) SC SCH (06:28)
[2018-06-08] MEDS: InsuLIN REG 1unit/0.01ml Soln (100units/ml) SC SCH ×4 (06:28→21:46)
[2018-06-08] MEDS: Pro-Stat SF 30ml Vanilla PO SCH ×2 (08:00→18:25)
[2018-06-08] MEDS: ENOXAPARIN SOD 40 MG/0.4 ML SYRINGE SC SCH (08:48)
[2018-06-08] MEDS: metFORMIN HYDROCHLORIDE 500 MG TAB PO SCH ×2 (08:49→18:25)
[2018-06-08] MEDS: MULTIPLE VITAMIN TAB PO SCH (08:49)
[2018-06-08] MEDS: LOSARTAN POTASSIUM 50 MG TAB PO SCH (08:49)
[2018-06-08] MEDS: PANTOPRAZOLE 40 MG TAB PO SCH (08:49)
[2018-06-08] MEDS: ASCORBIC ACID 500 MG TAB PO SCH ×2 (08:50→21:28)
[2018-06-08] MEDS: SODIUM CHLOR 0.9% PF (SALINE LOCK) 10ML VIAL/SYR IV SCH ×2 (08:50→21:28)
[2018-06-08 09:00] VITALS: BP 113/67
[2018-06-08 13:00] VITALS: BP 123/77
[2018-06-08] MEDS: OXYCODONE W/ ACETAMINOPHEN 5/325MG TABLET PO PRN (13:45)
[2018-06-08 17:00] VITALS: BP 104/51
[2018-06-08 22:00] VITALS: BP 131/78
[2018-06-09] MEDS: MORPHINE SULFATE 4 MG/ML SYR/VIAL IV PRN ×4 (02:07→21:59)
[2018-06-09 05:00] VITALS: BP 121/75
[2018-06-09] MEDS: PIPERACILLIN-TAZOB 3.375GM 100 ML IV SCH ×4 (05:39→23:30)
[2018-06-09] MEDS: ACCU-CHEK COMFORT CURVE STRIP VI SCH ×4 (06:07→22:00)
[2018-06-09] MEDS: InsuLIN REG 1unit/0.01ml Soln (100units/ml) SC SCH ×4 (06:15→22:18)
[2018-06-09] MEDS: INSULIN LANTUS (GLARGINE) 1 /0.01ml (100units/ml) SC SCH (06:15)
[2018-06-09] MEDS: OXYCODONE W/ ACETAMINOPHEN 5/325MG TABLET PO PRN ×3 (07:32→16:41)
[2018-06-09] MEDS: Pro-Stat SF 30ml Vanilla PO SCH ×2 (08:00→18:00)
[2018-06-09] MEDS: metFORMIN HYDROCHLORIDE 500 MG TAB PO SCH ×2 (08:00→18:00)
[2018-06-09 08:57] VITALS: BP 117/70
[2018-06-09] MEDS: ENOXAPARIN SOD 40 MG/0.4 ML SYRINGE SC SCH (10:00)
[2018-06-09] MEDS: MULTIPLE VITAMIN TAB PO SCH (10:00)
[2018-06-09] MEDS: PANTOPRAZOLE 40 MG TAB PO SCH (10:00)
[2018-06-09] MEDS: LOSARTAN POTASSIUM 50 MG TAB PO SCH (10:00)
[2018-06-09] MEDS: ASCORBIC ACID 500 MG TAB PO SCH ×2 (10:00→22:17)
[2018-06-09] MEDS: SODIUM CHLOR 0.9% PF (SALINE LOCK) 10ML VIAL/SYR IV SCH ×2 (10:00→21:59)
[2018-06-09 13:00] VITALS: BP 120/68
[2018-06-09 17:00] VITALS: BP 126/76
[2018-06-09 21:39] VITALS: BP 129/70
[2018-06-10] MEDS: MORPHINE SULFATE 4 MG/ML SYR/VIAL IV PRN ×5 (00:27→22:04)
[2018-06-10 04:44] VITALS: BP 126/84
[2018-06-10] MEDS: PIPERACILLIN-TAZOB 3.375GM 100 ML IV SCH ×4 (05:27→22:12)
[2018-06-10] MEDS: ACCU-CHEK COMFORT CURVE STRIP VI SCH ×4 (06:23→22:10)
[2018-06-10] MEDS: InsuLIN REG 1unit/0.01ml Soln (100units/ml) SC SCH ×4 (06:56→22:12)
[2018-06-10] MEDS: INSULIN LANTUS (GLARGINE) 1 /0.01ml (100units/ml) SC SCH (06:56)
[2018-06-10] MEDS: Pro-Stat SF 30ml Vanilla PO SCH ×2 (08:00→17:30)
[2018-06-10 09:00] VITALS: BP 135/77
[2018-06-10] MEDS: metFORMIN HYDROCHLORIDE 500 MG TAB PO SCH ×2 (09:06→17:30)
[2018-06-10] MEDS: SODIUM CHLOR 0.9% PF (SALINE LOCK) 10ML VIAL/SYR IV SCH ×2 (09:07→22:04)
[2018-06-10] MEDS: ENOXAPARIN SOD 40 MG/0.4 ML SYRINGE SC SCH (10:41)
[2018-06-10] MEDS: LOSARTAN POTASSIUM 50 MG TAB PO SCH (10:41)
[2018-06-10] MEDS: PANTOPRAZOLE 40 MG TAB PO SCH (10:41)
[2018-06-10] MEDS: MULTIPLE VITAMIN TAB PO SCH (10:42)
[2018-06-10] MEDS: ASCORBIC ACID 500 MG TAB PO SCH ×2 (11:04→22:04)
[2018-06-10 13:00] VITALS: BP 130/69
[2018-06-10 17:00] VITALS: BP 141/77
[2018-06-10 22:00] VITALS: BP 134/66
[2018-06-11] MEDS: MORPHINE SULFATE 4 MG/ML SYR/VIAL IV PRN ×4 (03:15→22:55)
[2018-06-11 05:00] VITALS: BP 143/79
[2018-06-11] MEDS: ACCU-CHEK COMFORT CURVE STRIP VI SCH ×4 (06:47→22:54)
[2018-06-11] MEDS: PIPERACILLIN-TAZOB 3.375GM 100 ML IV SCH ×4 (06:47→22:55)
[2018-06-11] MEDS: InsuLIN REG 1unit/0.01ml Soln (100units/ml) SC SCH ×4 (06:47→22:54)
[2018-06-11] MEDS: INSULIN LANTUS (GLARGINE) 1 /0.01ml (100units/ml) SC SCH (07:21)
[2018-06-11] MEDS: Pro-Stat SF 30ml Vanilla PO SCH ×2 (08:12→17:26)
[2018-06-11] MEDS: metFORMIN HYDROCHLORIDE 500 MG TAB PO SCH ×2 (08:12→17:26)
[2018-06-11 08:49] VITALS: BP 138/90
[2018-06-11] MEDS: PANTOPRAZOLE 40 MG TAB PO SCH (10:00)
[2018-06-11] MEDS: SODIUM CHLOR 0.9% PF (SALINE LOCK) 10ML VIAL/SYR IV SCH ×2 (11:27→22:54)
[2018-06-11] MEDS: ENOXAPARIN SOD 40 MG/0.4 ML SYRINGE SC SCH (11:27)
[2018-06-11] MEDS: LOSARTAN POTASSIUM 50 MG TAB PO SCH (11:28)
[2018-06-11] MEDS: ASCORBIC ACID 500 MG TAB PO SCH ×2 (11:28→22:54)
[2018-06-11] MEDS: MULTIPLE VITAMIN TAB PO SCH (11:28)
[2018-06-11 13:00] VITALS: BP 136/90
[2018-06-11 16:34] VITALS: BP 143/83
[2018-06-11 22:00] VITALS: BP 129/80
[2018-06-12] MEDS: MORPHINE SULFATE 4 MG/ML SYR/VIAL IV PRN ×4 (03:47→20:27)
[2018-06-12 05:55] VITALS: BP 142/73
[2018-06-12] MEDS: InsuLIN REG 1unit/0.01ml Soln (100units/ml) SC SCH ×4 (06:24→21:36)
[2018-06-12] MEDS: PIPERACILLIN-TAZOB 3.375GM 100 ML IV SCH ×3 (06:24→17:15)
[2018-06-12] MEDS: ACCU-CHEK COMFORT CURVE STRIP VI SCH ×4 (06:25→21:36)
[2018-06-12] MEDS: INSULIN LANTUS (GLARGINE) 1 /0.01ml (100units/ml) SC SCH (06:25)
[2018-06-12 07:02] LABS: Basophils # (auto) 0 uL; Basophils % (auto) 0.9 % (0.0-2.0); Eosinophils # (auto) 0.4 uL; Eosinophils % (auto) 8.5 % (0.0-7.0); Hematocrit 36.7 % (41.0-53.0); Hemoglobin 12.4 g/dL (13.5-17.5); Lymphocytes # (auto) 1.9 uL; Lymphocytes % (auto) 36.4 % (10.0-50.0); Mean Corpuscular Hemoglobin 27.6 pg (28.0-32.0); Mean Corpuscular Hgb Conc. 33.9 g/dL (32.0-36.0); Mean Corpuscular Volume 81.5 fL (80.0-100.0); Monocytes # (auto) 0.5 uL; Monocytes % (auto) 9.2 % (0.0-12.0); Neutrophils # (auto) 2.3 uL; Nucleated Red Blood Cells % 0.2 %; Platelet Count (auto) 263 10^3/uL (140-450); Red Blood Cells 4.51 10^6/uL (4.5-5.90); Red Cell Distribution Width 14.4 % (11.8-14.3); White Blood Cell 5.2 10^3/uL (4.4-10.8)
[2018-06-12 07:28] LABS: Calcium 8.3 mg/dL (8.5-10.1); Potassium 3.9 mmol/L (3.5-5.1)
[2018-06-12 07:30] LABS: BUN/Creatinine Ratio 13.3
[2018-06-12] MEDS: metFORMIN HYDROCHLORIDE 500 MG TAB PO SCH ×2 (08:39→17:16)
[2018-06-12] MEDS: Pro-Stat SF 30ml Vanilla PO SCH ×2 (08:40→17:17)
[2018-06-12 09:00] VITALS: BP 123/70
[2018-06-12] MEDS: ENOXAPARIN SOD 40 MG/0.4 ML SYRINGE SC SCH (10:44)
[2018-06-12] MEDS: MULTIPLE VITAMIN TAB PO SCH (10:44)
[2018-06-12] MEDS: PANTOPRAZOLE 40 MG TAB PO SCH (10:44)
[2018-06-12] MEDS: LOSARTAN POTASSIUM 50 MG TAB PO SCH (10:45)
[2018-06-12] MEDS: SODIUM CHLOR 0.9% PF (SALINE LOCK) 10ML VIAL/SYR IV SCH ×2 (10:48→21:36)
[2018-06-12] MEDS: ASCORBIC ACID 500 MG TAB PO SCH ×2 (10:49→21:36)
[2018-06-12 12:00] VITALS: BP 116/70
[2018-06-12 16:00] VITALS: BP 137/73
[2018-06-12 22:00] VITALS: BP 135/69
[2018-06-13 05:00] VITALS: BP 126/72
[2018-06-13] MEDS: INSULIN LANTUS (GLARGINE) 1 /0.01ml (100units/ml) SC SCH (06:34)
[2018-06-13] MEDS: InsuLIN REG 1unit/0.01ml Soln (100units/ml) SC SCH ×4 (06:34→21:58)
[2018-06-13] MEDS: ACCU-CHEK COMFORT CURVE STRIP VI SCH ×4 (06:34→21:58)
[2018-06-13] MEDS: MORPHINE SULFATE 4 MG/ML SYR/VIAL IV PRN ×4 (06:35→20:18)
[2018-06-13] MEDS: metFORMIN HYDROCHLORIDE 500 MG TAB PO SCH ×2 (07:59→17:29)
[2018-06-13] MEDS: Pro-Stat SF 30ml Vanilla PO SCH ×2 (08:00→18:46)
[2018-06-13 09:00] VITALS: BP 124/70
[2018-06-13] MEDS: ASCORBIC ACID 500 MG TAB PO SCH ×2 (09:42→21:58)
[2018-06-13] MEDS: MULTIPLE VITAMIN TAB PO SCH (09:42)
[2018-06-13] MEDS: ENOXAPARIN SOD 40 MG/0.4 ML SYRINGE SC SCH (09:42)
[2018-06-13] MEDS: PANTOPRAZOLE 40 MG TAB PO SCH (09:42)
[2018-06-13] MEDS: SODIUM CHLOR 0.9% PF (SALINE LOCK) 10ML VIAL/SYR IV SCH ×2 (09:43→21:58)
[2018-06-13] MEDS: LOSARTAN POTASSIUM 50 MG TAB PO SCH (09:43)
[2018-06-13 13:03] VITALS: BP 120/72
[2018-06-13 17:00] VITALS: BP 135/75
[2018-06-13 22:00] VITALS: BP 120/69
[2018-06-14] MEDS: MORPHINE SULFATE 4 MG/ML SYR/VIAL IV PRN (00:18)
[2018-06-14 05:00] VITALS: BP 131/71
[2018-06-14] MEDS: INSULIN LANTUS (GLARGINE) 1 /0.01ml (100units/ml) SC SCH (06:42)
[2018-06-14] MEDS: InsuLIN REG 1unit/0.01ml Soln (100units/ml) SC SCH ×4 (06:42→21:49)
[2018-06-14] MEDS: ACCU-CHEK COMFORT CURVE STRIP VI SCH ×4 (06:42→21:43)
[2018-06-14] MEDS: metFORMIN HYDROCHLORIDE 500 MG TAB PO SCH ×2 (08:17→18:00)
[2018-06-14] MEDS: Pro-Stat SF 30ml Vanilla PO SCH ×2 (08:21→18:00)
[2018-06-14 08:40] VITALS: BP 128/72
[2018-06-14] MEDS: ENOXAPARIN SOD 40 MG/0.4 ML SYRINGE SC SCH (10:00)
[2018-06-14] MEDS: SODIUM CHLOR 0.9% PF (SALINE LOCK) 10ML VIAL/SYR IV SCH ×2 (10:00→21:36)
[2018-06-14] MEDS ORDERED: HYDROmorphone HCL 2 MG TAB PO PRN ×2 (11:15→14:00)
[2018-06-14] MEDS: MULTIPLE VITAMIN TAB PO SCH (11:26)
[2018-06-14] MEDS: PANTOPRAZOLE 40 MG TAB PO SCH (11:27)
[2018-06-14] MEDS: LOSARTAN POTASSIUM 50 MG TAB PO SCH (11:27)
[2018-06-14] MEDS: ASCORBIC ACID 500 MG TAB PO SCH ×2 (11:27→21:36)
[2018-06-14 12:52] VITALS: BP 132/71
[2018-06-14 17:16] VITALS: BP 148/85
[2018-06-14] MEDS: HYDROcodone-ACET 10/325MG TAB PO PRN (21:57)
[2018-06-14 22:00] VITALS: BP 144/87
[2018-06-15 05:00] VITALS: BP 133/75
[2018-06-15] MEDS: InsuLIN REG 1unit/0.01ml Soln (100units/ml) SC SCH ×4 (06:17→21:22)
[2018-06-15] MEDS: INSULIN LANTUS (GLARGINE) 1 /0.01ml (100units/ml) SC SCH (06:18)
[2018-06-15] MEDS: ACCU-CHEK COMFORT CURVE STRIP VI SCH ×4 (06:18→21:22)
[2018-06-15] MEDS: HYDROcodone-ACET 10/325MG TAB PO PRN ×3 (06:22→21:22)
[2018-06-15] MEDS: Pro-Stat SF 30ml Vanilla PO SCH ×2 (08:00→17:59)
[2018-06-15] MEDS: metFORMIN HYDROCHLORIDE 500 MG TAB PO SCH ×2 (08:07→17:58)
[2018-06-15 08:38] VITALS: BP 146/95
[2018-06-15] MEDS: ENOXAPARIN SOD 40 MG/0.4 ML SYRINGE SC SCH (10:20)
[2018-06-15] MEDS: LOSARTAN POTASSIUM 50 MG TAB PO SCH (10:20)
[2018-06-15] MEDS: PANTOPRAZOLE 40 MG TAB PO SCH (10:20)
[2018-06-15] MEDS: MULTIPLE VITAMIN TAB PO SCH (10:20)
[2018-06-15] MEDS: ASCORBIC ACID 500 MG TAB PO SCH ×2 (10:21→21:21)
[2018-06-15] MEDS: SODIUM CHLOR 0.9% PF (SALINE LOCK) 10ML VIAL/SYR IV SCH ×2 (10:23→21:21)
[2018-06-15 12:49] VITALS: BP 138/87
[2018-06-15 16:36] VITALS: BP 122/86
[2018-06-15] MEDS: PIPERACILLIN-TAZOB 3.375GM 100 ML IV SCH (17:58)
[2018-06-15] MEDS: VANCOMYCIN 1GM/250ML 250 ML IV SCH (21:21)
[2018-06-15 22:00] VITALS: BP 117/75
[2018-06-16] MEDS: PIPERACILLIN-TAZOB 3.375GM 100 ML IV SCH ×5 (00:03→23:29)
[2018-06-16] MEDS: HYDROcodone-ACET 10/325MG TAB PO PRN ×4 (01:15→21:54)
[2018-06-16 05:00] VITALS: BP 118/71
[2018-06-16] MEDS: InsuLIN REG 1unit/0.01ml Soln (100units/ml) SC SCH ×4 (07:00→21:53)
[2018-06-16] MEDS: INSULIN LANTUS (GLARGINE) 1 /0.01ml (100units/ml) SC SCH (07:05)
[2018-06-16] MEDS: ACCU-CHEK COMFORT CURVE STRIP VI SCH ×4 (07:05→21:53)
[2018-06-16] MEDS: Pro-Stat SF 30ml Vanilla PO SCH ×2 (08:11→17:47)
[2018-06-16] MEDS: metFORMIN HYDROCHLORIDE 500 MG TAB PO SCH ×2 (08:11→17:35)
[2018-06-16 08:53] VITALS: BP 128/75
[2018-06-16] MEDS: ENOXAPARIN SOD 40 MG/0.4 ML SYRINGE SC SCH (10:15)
[2018-06-16] MEDS: MULTIPLE VITAMIN TAB PO SCH (10:15)
[2018-06-16] MEDS: PANTOPRAZOLE 40 MG TAB PO SCH (10:16)
[2018-06-16] MEDS: VANCOMYCIN 1GM/250ML 250 ML IV SCH ×2 (10:16→21:52)
[2018-06-16] MEDS: ASCORBIC ACID 500 MG TAB PO SCH ×2 (10:16→21:53)
[2018-06-16] MEDS: LOSARTAN POTASSIUM 50 MG TAB PO SCH (10:16)
[2018-06-16] MEDS: SODIUM CHLOR 0.9% PF (SALINE LOCK) 10ML VIAL/SYR IV SCH ×2 (10:18→21:52)
[2018-06-16 13:26] VITALS: BP 134/83
[2018-06-16 16:40] VITALS: BP 123/73
[2018-06-16 22:00] VITALS: BP 138/78
[2018-06-17] MEDS: HYDROcodone-ACET 10/325MG TAB PO PRN ×4 (02:00→15:46)
[2018-06-17 05:00] VITALS: BP 120/73
[2018-06-17] MEDS: PIPERACILLIN-TAZOB 3.375GM 100 ML IV SCH ×2 (06:05→13:29)
[2018-06-17] MEDS: INSULIN LANTUS (GLARGINE) 1 /0.01ml (100units/ml) SC SCH (06:05)
[2018-06-17] MEDS: InsuLIN REG 1unit/0.01ml Soln (100units/ml) SC SCH ×2 (06:05→11:30)
[2018-06-17] MEDS: ACCU-CHEK COMFORT CURVE STRIP VI SCH ×2 (06:06→11:30)
[2018-06-17] MEDS ORDERED: SUCCINYLCHOLINE CHLORIDE 20 MG/ML 10ML VIAL IV ONE (06:58)
[2018-06-17] MEDS ORDERED: LIDOCAINE 1% HCL (LOCAL ANESTH.) INJ 20ML MDV ONE (06:58)
[2018-06-17 08:00] VITALS: BP 115/84
[2018-06-17] MEDS: metFORMIN HYDROCHLORIDE 500 MG TAB PO SCH (10:36)
[2018-06-17] MEDS: Pro-Stat SF 30ml Vanilla PO SCH (10:36)
[2018-06-17] MEDS: VANCOMYCIN 1GM/250ML 250 ML IV SCH (10:36)
[2018-06-17] MEDS: MULTIPLE VITAMIN TAB PO SCH (10:37)
[2018-06-17] MEDS: SODIUM CHLOR 0.9% PF (SALINE LOCK) 10ML VIAL/SYR IV SCH (10:37)
[2018-06-17] MEDS: LOSARTAN POTASSIUM 50 MG TAB PO SCH (10:37)
[2018-06-17] MEDS: ENOXAPARIN SOD 40 MG/0.4 ML SYRINGE SC SCH (10:38)
[2018-06-17] MEDS: PANTOPRAZOLE 40 MG TAB PO SCH (10:38)
[2018-06-17] MEDS: ASCORBIC ACID 500 MG TAB PO SCH (10:38)
[2018-06-17] MEDS ORDERED: HYDR-4072 PO (11:35)
[2018-06-17] MEDS ORDERED: SULF400T11 PO (11:35)
[2018-06-17 13:00] VITALS: BP 125/70
[2018-06-17 15:52] VITALS: BP 125/70
== END 2018-06-17 15:43 | DRG 674 ==
LOC: ER 14:32 → EEVIPCON 14:32 → EAST 14:33 → EEVIPCON 14:33 → EAST 22:19
PROVIDERS: ADMIT Internal Medicine; ATTEND Internal Medicine
PROC: 0JB70ZZ Excision of Back Subcutaneous Tissue and Fascia, Open Approach (ICD-10-PCS; 2018-05-25)
PROC: 0J970ZZ Drainage of Back Subcutaneous Tissue and Fascia, Open Approach (ICD-10-PCS; principal; 2018-05-25 16:32)
PROC: 02HV33Z Insertion of Infusion Device into Superior Vena Cava, Percutaneous Approach (ICD-10-PCS; 2018-06-05)
DX: N17.9 Acute kidney failure, unspecified (principal); L02.212 Cutaneous abscess of back [any part, except buttock and flank]; Z68.43 Body mass index [BMI] 50.0-59.9, adult; E86.0 Dehydration; E66.01 Morbid (severe) obesity due to excess calories; I10 Essential (primary) hypertension; L02.93 Carbuncle, unspecified; E78.00 Pure hypercholesterolemia, unspecified; E11.9 Type 2 diabetes mellitus without complications; B95.8 Unspecified staphylococcus as the cause of diseases classified elsewhere; F12.90 Cannabis use, unspecified, uncomplicated; M54.9 Dorsalgia, unspecified; N18.3 Chronic kidney disease, stage 3 (moderate)
CPT/HCPCS: 36415; 36569; 71045; 80048; 80053; 80202; 82010; 82962; 83036; 83605; 85025; 85610; 85730; 87040; 87070; 87075; 87077; 87081; 87186; 87205; 96365; 96375; A4565; G0378; J0330; J0690; J0696; J1815; J2001; J2250; J2405; J2543; J2704; J3490